=== PATIENT | female | born 1960 | race African-American/Black ===

== ENCOUNTER 2016-10-12 11:13 | Inpatient (IN) ==
[2016-10-12 11:36] LABS: MANUAL DIFF NEEDED? NO
[2016-10-12 11:42] LABS: BASO% 0.4 % (0.0-0.8); EOS# 0.12 X1000 (0.0-0.7); EOS% 1.2 % (0.0-10.0); HEMOGLOBIN 15.9 g/dL (12.0-16.0); IMM GRAN# 0.02 X1000 (0.0-0.04); IMM GRAN% 0.2 % (0.0-0.5); LYMPH# 2.74 X1000 (1.2-3.4); LYMPH% 26.6 % (20.5-51.1); MCH 28.9 PG (27-31); MCHC 33.1 g/dL (33-37); MCV 87.1 FL (81-99); MONO# 0.85 X1000 (0.11-0.59); MONO% 8.2 % (1.7-9.3); MPV 10.5 FL (7.4-10.4); NEUT% 63.4 % (42.2-75.2); PLT 273 X1000 (130-400); RBC 5.51 XMIL (4.2-5.4)
[2016-10-12 12:33] LABS: AGAP 12; ALBUMIN 4.2 g/dL (3.5-5.0); ALKALINE PHOSPHATASE 101 U/L (32-104); BUN 11 mg/dL (8-22); CALCIUM 9.9 mg/dL (8.8-10.2); CHLORIDE 93 mmol/L (98-107); COSMO 269; GOT 20 U/L (10-30); GPT 13 U/L (10-36); POTASSIUM 3.6 mmol/L (3.5-5.1); SODIUM 135 mmol/L (136-145); TCO2 30 mmol/L (25-35); TOTAL BILIRUBIN 0.35 mg/dL (0.20-1.00); TOTAL PROTEIN 8.1 g/dL (6.3-8.3)
[2016-10-12] MEDS ORDERED: DILAUDID IV ONE (12:44)
--- NOTE | 2016-10-12 12:46 | PROVIDER DOCUMENTATION ---
This chart was entered by Michele Goldman Scribe, acting as scribe for Tony Rowland MD. HPI-Respiratory General - General Stated Complaint: right pneumothorax Time Seen by Provider: 10/12/16 11:13 Source: patient Allergies/Adverse Reactions: Patient Allergies Allergy/AdvReac Type Severity Reaction Status Date / Time minocycline HCl * AdvReac HIVES Verified 10/12/16 12:03 [From Minocin] Home Medications: Home Medication List Medication Instructions Recorded Confirmed Last Taken Type Hydrochlorothiazide 2 tab PO DAILY 12/26/14 10/12/16 12/26/14 History Metoprolol Succinate E.r. [Toprol 100 mg PO DAILY 12/26/14 10/12/16 12/26/14 History Xl] - History of Present Illness-Resp Nature of Presenting Problem: patient is a 56 y/o F that presents to the ER with shortness of breath x 2 weeks. patient went to pcp today, had outpatient xray that revealed a collapse upper right lobe to right lung. History of same in past. patient denies cough or chest pain. Quality of Pain: reports: tightness Severity in ED: reports: moderate Onset/Duration: reports: gradual, other (2 weeks) Timing: reports: still present, constant Context: denies: recent URI, out of meds, sports/exercise Cough Quality/Degree: reports: no cough Episode Frequency: occasional episodes Current Respiratory Medication Therapy: Initiated see nurses note Modifying Factors: worse with: exertion, lying down Associated Symptoms: reports: shortness of breath, short of breath. denies: cough, fever/chills, flu-like symptoms, heart racing, nasal congestion, nasal drainage, sweaty, wheezing Similar Symptoms Previously?: Yes Recently seen or treated by another doctor?: Yes Review of Systems - Adult - REVIEW OF SYSTEMS - ADULT Constitutional: denies: chills, fever Eyes: reports: no symptoms reported Ears, Nose, Mouth & Throat: reports: no symptoms reported Cardiovascular: reports: orthopnea. denies: chest pain, palpitations Respiratory: reports: dyspnea on exertion, shortness of breath. denies: wheezing Gastrointestinal: denies: diarrhea, nausea, vomiting Genitourinary: reports: no symptoms reported Musculoskeletal: reports: no symptoms reported Integumentary: reports: no symptoms reported Neurological: reports: no symptoms reported Psychiatric: reports: no symptoms reported Endocrine: reports: no symptoms reported Hematologic/Lymphatic: reports: no symptoms reported Allergic/Immunologic: reports: no symptoms reported All Other Systems: Reviewed and Negative Past History - Adult - PAST MEDICAL HISTORY-ADULT Review of Records: reports: Old Records Reviewed, Nursing Assessment Review, Medications Reviewed Cardiovascular: reports: HTN Respiratory: reports: other (pulmonary nodule--followed with no change since 2010) - PRIOR SURGERIES/PROCEDURES Surgical/Procedure History: reports: other (bronchoscopy with biopsy for RLL lung lesion 2010, previous chest tube) - IMMUNIZATION STATUS Childhood Immunizations: See Nurse Assessment Flu Vaccine: See Nurse Assessment - FAMILY HISTORY Family History: reviewed, not pertinent - SOCIAL HISTORY Smoking: non-smoker Living Situation: family Physical Exam-General - PHYSICAL EXAM-ADULT Initial Vital Signs Reviewed: Yes - CONSTITUTIONAL General Appearance: alert, mild distress - EYES Eyes: PERRL/EOMI, pink conjunctivae - HEAD, EARS, NOSE, MOUTH & THROAT HENMT: normocephalic/atraumatic, moist mucous membranes, normal ENT inspection - NECK Neck: non-tender, full range of motion, normal inspection - RESPIRATORY Respiratory: no respiratory distress, no accessory muscle use, decreased breath sounds (complete right lung) - CARDIOVASCULAR Cardiovascular: regular rate, rhythm, no edema, no murmur - GASTROINTESTINAL (ABDOMEN) Abdominal Exam: normal bowel sounds, non tender, soft, no organomegaly, no pulsatile mass - MUSCULOSKELETAL Back Exam: no CVA tenderness, no vertebral tenderness Extremity: normal range of motion, normal inspection, no pedal edema - SKIN Integumentary: normal color, warm/dry - NEUROLOGIC Neurologic: grossly normal, no motor/sensory deficits - PSYCHIATRIC Psych/Mental Status: normal mood/affect, normal thought content, normal thought process, oriented x 3 Progress - PLAN OF CARE/RESULTS Progress/Plan/Lab Results: Vital Signs - 8 hr 10/12/16 11:15 10/12/16 11:30 10/12/16 11:45 Temperature 98.2 F Pulse Rate 78 68 76 Respiratory Rate 13 25 H 17 Blood Pressure 152/99 151/71 142/117 O2 Sat by Pulse Oximetry 92 L 93 L 95 10/12/16 12:02 10/12/16 12:05 10/12/16 12:17 Temperature Pulse Rate 97 H 77 74 Respiratory Rate 35 H 15 21 Blood Pressure 147/100 135/93 O2 Sat by Pulse Oximetry 96 97 94 L 10/12/16 12:31 10/12/16 12:45 Temperature Pulse Rate 72 65 Respiratory Rate 19 14 Blood Pressure 150/97 143/95 O2 Sat by Pulse Oximetry 96 94 L Laboratory Results - last 24 hr 10/12/16 10/12/16 11:22 11:22 WBC 10.32 RBC 5.51 H Hgb 15.9 Hct 48.0 H MCV 87.1 MCH 28.9 MCHC 33.1 RDW Std Deviation 14.5 Plt Count 273 MPV 10.5 H Immature Gran % (Auto) 0.2 Neut % (Auto) 63.4 Lymph % (Auto) 26.6 [facility] % (Auto) 8.2 Eos % (Auto) 1.2 Baso % (Auto) 0.4 Immature Gran # (Auto) 0.02 Neut # (Auto) 6.55 H Lymph # (Auto) 2.74 [facility] # (Auto) 0.85 H Eos # (Auto) 0.12 Baso # (Auto) 0.04 Sodium 135 L Potassium 3.6 Chloride 93 L Carbon Dioxide 30 Anion Gap 12 BUN 11 Creatinine 0.8 Estimated GFR/1.73 m2 > 60 BUN/Creatinine Ratio 14 Glucose 93 Calculated Osmolality 269 Calcium 9.9 Total Bilirubin 0.35 AST 20 ALT 13 Alkaline Phosphatase 101 Total Protein 8.1 Albumin 4.2 Globulin 3.9 Albumin/Globulin Ratio 1.1 Orders Category Date Time Status Admit - [facility] Routine AdmDCTranf 10/12/16 15:03 Ordered Advance Diet as Tolerated ORDERED Care 10/12/16 15:03 Active Dressing Check PRN Care 10/12/16 15:03 Active Dressing Check Q1h Care 10/12/16 15:03 Active Misc. NRSG Communication Order DIRECTED Care 10/12/16 15:03 Active Routine PostOp Vital Signs ORDERED Care 10/12/16 15:03 Active CHEST-PORTABLE [RAD] Routine Exams 10/13/16 06:00 Ordered CHEST/ABD TUBE PLACEMENT [RAD] Stat Exams 10/12/16 12:12 Completed CBC WITH ELECTRONIC DIFF [HEME] Stat Lab 10/12/16 11:22 Completed CMP [COMPREHENSIVE METABOLIC PANEL] [CHEM] Stat Lab 10/12/16 11:22 Completed 0.9% Sodium Chloride Inj [Ns] 1,000 ml Med 10/12/16 15:03 Active IV KVO Hydrochlorothiazide Med 10/13/16 09:00 Active 25 mg PO DAILY Hydromorphone [Dilaudid] Med 10/12/16 15:03 Active 0.5 mg IV Q2-4H PRN PRN Hydromorphone [Dilaudid] Med 10/12/16 12:44 Discontinued 1 mg IV NOW ONE Metoprolol Succinate E.r. [Toprol Xl] Med 10/13/16 09:00 Active 100 mg PO DAILY Ondansetron [Zofran] Med 10/12/16 15:03 Active 4 mg IV Q4-6H PRN PRN Promethazine [Phenergan] Med 10/12/16 13:30 Discontinued 25 mg IV NOW ONE Sodium Chloride 0.9% Med 10/12/16 13:30 Discontinued 10 ml INJ NOW ONE Transfer/Admit Order [TRANSFER] Routine Transfer 10/12/16 12:19 Completed reviewed outpatient xray and reports, shows patient has interval development of large right-sided pneumothorax with collapse of the right upper lobe 1154- at bedside Vital Signs Temp Pulse Resp BP Pulse Ox 10/12/16 12:31 72 19 150/97 96 10/12/16 12:05 77 15 147/100 97 10/12/16 12:02 97 H 35 H 96 10/12/16 11:45 76 17 142/117 95 10/12/16 11:30 68 25 H 151/71 93 L 10/12/16 11:15 98.2 F 78 13 152/99 92 L minocycline HCl * [From Minocin] Adverse Reaction (Verified 10/12/16 12:03) HIVES Hydrochlorothiazide 2 tab PO DAILY 12/26/14 Metoprolol Succinate E.r. [Toprol Xl] 100 mg PO DAILY 12/26/14 Laboratory 10/12/16 10/12/16 11:22 11:22 WBC 10.32 RBC 5.51 H Hgb 15.9 Hct 48.0 H MCV 87.1 MCH 28.9 MCHC 33.1 RDW Std Deviation 14.5 Plt Count 273 MPV 10.5 H Immature Gran % (Auto) 0.2 Neut % (Auto) 63.4 Lymph % (Auto) 26.6 [facility] % (Auto) 8.2 Eos % (Auto) 1.2 Baso % (Auto) 0.4 Immature Gran # (Auto) 0.02 Neut # (Auto) 6.55 H Lymph # (Auto) 2.74 [facility] # (Auto) 0.85 H Eos # (Auto) 0.12 Baso # (Auto) 0.04 Sodium 135 L Potassium 3.6 Chloride 93 L Carbon Dioxide 30 Anion Gap 12 BUN 11 Creatinine 0.8 Estimated GFR/1.73 m2 > 60 BUN/Creatinine Ratio 14 Glucose 93 Calculated Osmolality 269 Calcium 9.9 Total Bilirubin 0.35 AST 20 ALT 13 Alkaline Phosphatase 101 Total Protein 8.1 Albumin 4.2 Globulin 3.9 Albumin/Globulin Ratio 1.1 Orders Category Date Time Status CHEST/ABD TUBE PLACEMENT [RAD] Stat Exams 10/12/16 12:12 Taken CBC WITH ELECTRONIC DIFF [HEME] Stat Lab 10/12/16 11:22 Completed CMP [COMPREHENSIVE METABOLIC PANEL] [CHEM] Stat Lab 10/12/16 11:22 Completed Hydromorphone [Dilaudid] Med 10/12/16 12:44 Discontinued 1 mg IV NOW ONE Transfer/Admit Order [TRANSFER] Routine Transfer 10/12/16 12:19 Ordered Result Diagrams: 10/12/16 11:22 10/12/16 11:22 - CONSULTS/PCP/HOSPITALIST Notification #1 *Consult/PCP/Hospitalist*: Dr. Chace Madden Time Discussed: 11:42 Reason/Comments: collapse right lung Consult Disposition: Will see in ED Departure - Departure Time of Disposition Decision: 12:45 DIAGNOSIS: Spontaneous pneumothorax Disposition: ADMITTED INPATIENT 09 Certified Medical Emergency: Emergent Condition: Stable - Critical Care Note This patient required my direct personal management.: Yes This chart was documented by the indicated scribe, (Michele Goldman, Scribe) and accurately reflects the services I performed and decisions made by me, Tony Rowland MD, as attested by the provider's signature.
--- NOTE | 2016-10-12 12:51 | Diag Imaging Result Document ---
PROCEDURE NAME: CHEST/ABD TUBE PLACEMENT - 10/12/2016 PORTABLE CHEST: COMPARISON: Compared to study performed earlier. FINDINGS: Interval placement of a right-sided chest tube. Marked decrease in the size of the right-sided pneumothorax. There has been partial reexpansion of the right upper lobe. Left lung remains clear. IMPRESSION: Placement of a right-sided chest tube with partial reexpansion of the right upper lobe and interval decrease in the size of the pneumothorax.
[2016-10-12] MEDS ORDERED: SODIUM CHLORIDE 0.9% INJ ONE (13:30)
[2016-10-12] MEDS ORDERED: PHENERGAN IV ONE (13:30)
--- NOTE | 2016-10-12 13:30 | HISTORY AND PHYSICAL ---
CHIEF COMPLAINT: Right pneumothorax. HISTORY: This is a 56-year-old lady who presented to Dr. Muhammad today for routine physical. She was noticed to have diminished breath sounds and having some chest discomfort so a chest x-ray is ordered revealing a right pneumothorax. She was sent to the ED. PAST HISTORY: Is pertinent for previous spontaneous pneumothorax on the right in December,. She was treated with chest tube x 2 at that time by Dr. Cee that resolved and she was discharged. OTHER MEDICAL PROBLEMS: Include hypertension. MEDICATIONS AT HOME: 1. Metoprolol. 2. Hydrochlorothiazide. ALLERGIES: She has no known drug allergies. FAMILY HISTORY: Noncontributory. SOCIAL HISTORY: She does not smoke or drink alcohol or do any illicit drug use. REVIEW OF SYSTEMS: Pertinent only for the right chest discomfort and mild shortness of breath. PHYSICAL EXAMINATION: VITAL SIGNS: She is afebrile. Heart rate 78, respiratory rate is 13. Blood pressure 152/99. O2 saturation is 92% on room air. She has no cervical adenopathy. Breath sounds are diminished on the right side. HEART: Regular rate and rhythm. She has a hypertrophic scar in the right upper anterior chest and one on the right lateral chest. ABDOMEN: Soft, nontender. No peripheral edema. NEUROLOGIC: She is awake and alert. DIAGNOSTICS/[place]S: [place] [address], hemoglobin 15. Hematocrit 48. X-ray shows a large right pneumothorax. ASSESSMENT: Spontaneous right pneumothorax. It is recurrent. The plan is a right chest tube placement. I have discussed it with her. She understands and agrees to proceed. cc: Tomas Madden MD
--- NOTE | 2016-10-12 14:49 | OPERATIVE NOTE ---
PROCEDURE DATE: 10/12/2016 PROCEDURE PERFORMED: Right chest tube placement. SURGEON: Tomas Madden MD PREOPERATIVE DIAGNOSIS: Recurrent spontaneous right pneumothorax. POSTOPERATIVE DIAGNOSIS: Recurrent spontaneous right pneumothorax. DESCRIPTION OF PROCEDURE: The patient was laid supine with only gentle elevation of her head. The right breast was retracted cephalad. The submammary skin was prepped and draped in a sterile fashion. We anesthetized the skin with 1% lidocaine without epinephrine. We anesthetized the skin, subcutaneous tissue, and the pleura just over a rib. We incised the skin and used Metzenbaum scissors to spread the subcutaneous tissue until we entered the pleural space. We then introduced a 28 trocar chest tube into the pleural space. We advanced it laterally and cephalad. We secured the chest tube to the skin with 0 silk sutures and sterile gauze dressings applied. The chest tube was attached to the Pleur-evac. She tolerated this satisfactorily. A chest x-ray was ordered. cc: Tomas Madden MD
[2016-10-12] MEDS ORDERED: ZOFRAN IV PRN (15:03)
[2016-10-12] MEDS: NS 1,000 ML IV SCH (15:39)
[2016-10-12] MEDS: DILAUDID IV PRN (21:49)
[2016-10-13] MEDS: DILAUDID IV PRN ×2 (02:39→14:24)
--- NOTE | 2016-10-13 07:27 | Diag Imaging Result Document ---
PROCEDURE NAME: CHEST-PORTABLE - 10/13/2016 AP PORTABLE CHEST AT 0500 HOURS: FINDINGS: There is a chest tube on the right side. Despite this, the right-sided pneumothorax appears somewhat larger than it did on the previous study of 10/12/2016 at 12:25 hours. The left lung is unchanged in appearance. There is slightly worsened atelectasis in the right base. IMPRESSION: Worsened right pneumothorax.
[2016-10-13] MEDS: HYDROCHLOROTHIAZIDE PO SCH (09:40)
[2016-10-13] MEDS: TOPROL XL PO SCH (09:40)
[2016-10-13] MEDS: NS 1,000 ML IV SCH (14:28)
[2016-10-14] MEDS: DILAUDID IV PRN ×2 (00:14→23:18)
--- NOTE | 2016-10-14 07:42 | Diag Imaging Result Document ---
PROCEDURE NAME: CHEST-PORTABLE - 10/14/2016 ERECT AP PORTABLE CHEST AT 0555 HOURS: FINDINGS: The inspiration is less optimal on the current study than on the previous examination of 10/13/2016; however, despite this, the pneumothorax on the right has diminished in volume. The right chest tube is again noted. There is some atelectasis present in the right base. IMPRESSION: Improved right pneumothorax.
[2016-10-14] MEDS: HYDROCHLOROTHIAZIDE PO SCH (08:07)
[2016-10-14] MEDS: TOPROL XL PO SCH (08:07)
[2016-10-15] MEDS: HYDROCHLOROTHIAZIDE PO SCH (09:52)
[2016-10-15] MEDS: TOPROL XL PO SCH (09:52)
[2016-10-15] MEDS: DILAUDID IV PRN ×2 (12:10→21:00)
[2016-10-15] MEDS: NS 1,000 ML IV SCH (12:14)
--- NOTE | 2016-10-15 17:38 | PROGRESS NOTE ---
DATE: 10/15/2016 SUBJECTIVE: The patient says she is breathing okay, not any worse than previous. OBJECTIVE: Vital signs: She is afebrile. Vital signs are stable. General: Alert and oriented x4. No acute distress. Respiratory: Bilateral equal breath sounds. ASSESSMENT AND PLAN: This is a 56-year-old female with recurrent spontaneous pneumothorax on the right. She is scheduled for a right video-assisted thoracoscopy with Dr. Madden on Monday. cc: MD Tomas Bradley MD
[2016-10-16] MEDS: TOPROL XL PO SCH (09:11)
[2016-10-16] MEDS: HYDROCHLOROTHIAZIDE PO SCH (09:11)
[2016-10-16] MEDS: NS 1,000 ML IV SCH (09:11)
--- NOTE | 2016-10-16 10:24 | PROGRESS NOTE ---
DATE: 10/16/2016 SUBJECTIVE: The patient complains of some drainage around her chest tube with soiled dressings. OBJECTIVE: Vital Signs: She is afebrile. Vital signs are stable. Chest tube has put out 40 mL of fluid. General: She is alert and oriented x4. No acute distress. Respiratory: Bilateral breath sounds. No work of breathing. ASSESSMENT/PLAN: A 56-year-old female with recurrent spontaneous pneumothorax on the right. She is scheduled for a thoracoscopy tomorrow. cc: MD Tomas Bradley MD
[2016-10-16] MEDS: DILAUDID IV PRN (21:02)
[2016-10-17] MEDS: NS 1,000 ML IV SCH (08:20)
[2016-10-17] MEDS ORDERED: LR 1,000 ML ONE (11:46)
[2016-10-17] MEDS ORDERED: KEFZOL 1 GM/D5W 1 GM/50 ML IVPB ONE (11:46)
[2016-10-17] MEDS ORDERED: MARCAINE 0.25% PF/EPI 1:200,000 ONE (11:46)
[2016-10-17 13:00] LABS: URINE MICRO REVIEW NEEDED? NO; URINE SOURCE CATH
[2016-10-17 13:04] LABS: BILIRUBIN URINE NEGATIVE (NEGATIVE); BLOOD URINE NEGATIVE (NEGATIVE); COLOR YELLOW; GLUCOSE URINE NEGATIVE (NEGATIVE); LEUKOCYTES URINE NEGATIVE (NEGATIVE); NITRITE URINE NEGATIVE (NEGATIVE); PH URINE 7.5; PROTEIN URINE NEGATIVE (NEGATIVE); SP GRAVITY URINE 1.014; TURBIDITY URINE CLEAR (CLEAR); UR EPITHELIAL CELLS <10 /HPF (<10); URINE BACTERIA 1+ /HPF; URINE RBC <10 /HPF (<10); URINE WBC <10 /HPF (<10); UROBILINOGEN URINE NORMAL (NORMAL)
[2016-10-17] MEDS ORDERED: SCLEROSOL INTRAPLEURAL AEROSOL IX ONE (14:00)
[2016-10-17] MEDS ORDERED: MARCAINE 0.25% PF ONE (14:34)
[2016-10-17] MEDS ORDERED: SODIUM CHLORIDE 0.9% 10 ML ONE (14:34)
[2016-10-17] MEDS ORDERED: EXPAREL 1.3% ONE (14:34)
[2016-10-17] MEDS ORDERED: DILAUDID IV PRN (15:08)
[2016-10-17] MEDS ORDERED: DIPRIVAN 1% ONE (16:06)
[2016-10-17] MEDS ORDERED: FENTANYL ONE (16:06)
[2016-10-17] MEDS ORDERED: VERSED ONE (16:06)
--- NOTE | 2016-10-17 16:23 | Diag Imaging Result Document ---
PROCEDURE NAME: CHEST-PORTABLE - 10/17/2016 PORTABLE CHEST: COMPARISON: Compared with 10/14/2016. FINDINGS: There has been insertion of an endotracheal tube with its tip approximately 2.5 cm above the kt. The right chest tube is being exchanged for a new right chest tube, the tip of which is located at the medial right mid to lower chest. There has been interval resolution of the previous right pneumothorax. There are hazy infiltrates, atelectasis, or edema at the bilateral lung bases which have increased, particularly on the left. Heart size appears upper normal. IMPRESSION: Tip of endotracheal tube approximately 2.5 cm above the kt. No evidence of pneumothorax. Hazy infiltrates, atelectasis, or edema at the bilateral bases which have increased, particularly on the left.
[2016-10-17] MEDS ORDERED: NEOSTIGMINE ONE (16:45)
[2016-10-17] MEDS ORDERED: XYLOCAINE-MPF 2% ONE (16:45)
[2016-10-17] MEDS ORDERED: EPHEDRINE ONE (16:45)
[2016-10-17] MEDS ORDERED: OFIRMEV 1000 MG/ISOTONIC SOLN 1,000 MG/100 ML BOTTLE ONE (16:45)
[2016-10-17] MEDS ORDERED: QUELICIN (DOSE) ONE (16:45)
[2016-10-17] MEDS ORDERED: LR 2,000 ML ONE (16:45)
[2016-10-17] MEDS ORDERED: ZEMURON ONE (16:45)
[2016-10-17] MEDS ORDERED: ZOFRAN ONE (16:45)
[2016-10-17] MEDS ORDERED: ROBINUL ONE (16:45)
[2016-10-17] MEDS ORDERED: DECADRON ONE (16:45)
[2016-10-17 16:54] LABS: ALLEN TEST YES; BLOOD TYPE ARTERIAL; DRAW SITE R RADIAL; METHB 1.1 % (0.0-1.5); O2(CT) 19.2 mL/dL (15.0-23.0); PO2(98.6) 73 mmHg (60-100); SAMPLE BLOOD; SAO2 97.4 % (95.0-100.0); THB 14.5 g/dL (11.5-17.4); pH(98.6) 7.34 (7.35-7.45)
[2016-10-17 17:00] LABS: ALLEN TEST YES; BLOOD TYPE ARTERIAL; DRAW SITE R RADIAL; SAMPLE BLOOD
[2016-10-17 17:02] LABS: MODALITY VENTILATOR; PCO2(98.6) 63 mmHg (35-45)
[2016-10-17 17:04] LABS: BE 6.5 mmoll (-3.0-3.0); PCO2(98.6) 50 mmHg (35-45); PO2(98.6) 65 mmHg (60-100); pH(98.6) 7.42 (7.35-7.45)
[2016-10-17 17:05] LABS: METHB 1.7 % (0.0-1.5); SAO2 96.8 % (95.0-100.0); THB 14.6 g/dL (11.5-17.4)
[2016-10-17 17:06] LABS: MODALITY VENTILATOR; SRATE 6 BPM; TVOL 500 mL
--- NOTE | 2016-10-17 18:12 | OPERATIVE NOTE ---
PROCEDURE DATE: 10/17/2016 PROCEDURES: Diagnostic right thoracoscopy; right lateral thoracotomy with excision of multiple blebs. SURGEON: Tomas Madden MD. COMPRESSED [employer]QUIPMENT MECHANIC: Louis Simeon RN. PREOPERATIVE DIAGNOSIS: Recurrent right spontaneous pneumothorax. POSTOP DIAGNOSIS: Recurrent right spontaneous pneumothorax secondary to blebs located at the apexes as well as off the middle lobe. DESCRIPTION OF PROCEDURE: Satisfactory general endotracheal anesthesia was achieved. A double- lumen tube was placed and secured in position. The patient was then placed in the decubitus position with the right side up and secured there. The right chest was prepped and draped in a sterile fashion. We began in the upper anterior chest anesthetizing the skin, making incision and dissected through the subcutaneous tissue into the pleural space. We had to use regular 12 trocars in order to reach the pleural space. I placed another one posteriorly between the posterior border of the scapula and spine. There were adhesions noted between the lung and the chest wall and we had to bluntly take those down. An additional Thoracoport was placed below the scapula so we had 3 different ports placed. Blebs were noted and what appeared to be off the apex of the lung and possibly off the middle or lower lobe. We are able to staple across 1 but we could not do an adequate job removing the blebs thoracoscopically so at this point, we decided to do a lateral thoracotomy so I marked the skin and anesthetized the skin with 0.25 Marcaine with epinephrine, used a 14 cm incision and carried the incision actually through where the Thoracoport right below the scapula was in the midaspect of the thoracotomy incision. We carried our incision through the subcutaneous tissue through the latissimus muscle with the edge and the serratus muscle and entered the pleural space. We had grasped the bleb with a ratcheted grasper through her posterior Thoracoport so we brought it up to the wound. We then placed a rib transferrer and spread the ribs slightly allowing delivery of the large bled through the thoracotomy incision. We then used a DOROTHEA purple 60 cm long stapler to staple across the base of the bleb. We removed it in toto. We did an additional excision of a small bleb off the upper lobe as well. After that we inspected the lung and did not see any other blebs on the upper, middle or lower lobes. We felt we had adequately completed the blebectomy, then placed a 32 chest tube through the anterior Thoracoport. We removed the Thoracoport posteriorly, placed 3-0 Polysorb in subcutaneous tissue and closed that with a 4-0 Polysorb subcuticular stitch. For the thoracotomy incision we used Exparel combined with plain Marcaine a total of 50 mL, that was 20 mL of Exparel, 20 mL of plain Marcaine 0.25 and then 10 mL of saline. We injected this around the ribs and in the dermis and subcutaneous tissue. After we generously applied that we used a #2 Tycron to go around the ribs and bring them together. We closed the serratus with 1 Polysorb. We closed the latissimus with 0 Polysorb. We closed the subcutaneous tissue with 0 Polysorb and closed the skin with rayshawn. Sterile dressings were applied. The chest tube was secured at the skin level with 0 silk. The chest tube was attached to a Pleur-evac. Sterile dressing was applied. She tolerated it well. Was sent to the recovery room in satisfactory condition. cc: Vincent Muhammad MD
[2016-10-17] MEDS: HYDROCHLOROTHIAZIDE PO SCH (19:00)
[2016-10-17] MEDS: TOPROL XL PO SCH (19:01)
[2016-10-17] MEDS: PERIDEX MT SCH (21:10)
[2016-10-17] MEDS: OFIRMEV 1000 MG/ISOTONIC SOLN 1,000 MG/100 ML BOTTLE IV SCH (23:32)
[2016-10-18] MEDS: OFIRMEV 1000 MG/ISOTONIC SOLN 1,000 MG/100 ML BOTTLE IV SCH ×4 (05:38→23:45)
--- NOTE | 2016-10-18 07:26 | Diag Imaging Result Document ---
PROCEDURE NAME: CHEST-PORTABLE - 10/18/2016 PORTABLE CHEST: COMPARISON: The endotracheal tube has been removed. No change in the right-sided chest tube. No pneumothorax identified. The heart remains prominent. Increased markings in the lower lungs are similar to the prior exam. Questionable small left effusion. There are skin rayshawn seen laterally overlying the right breast. IMPRESSION: Interval removal of the endotracheal tube, otherwise stable chest.
[2016-10-18] MEDS: PERIDEX MT SCH ×2 (08:54→23:45)
[2016-10-18] MEDS: HYDROCHLOROTHIAZIDE PO SCH (08:54)
[2016-10-18] MEDS: TOPROL XL PO SCH (08:54)
[2016-10-18] MEDS ORDERED: ULTRAM PO PRN (16:13)
[2016-10-18] MEDS: NS 1,000 ML IV SCH (23:45)
[2016-10-19] MEDS: OFIRMEV 1000 MG/ISOTONIC SOLN 1,000 MG/100 ML BOTTLE IV SCH ×4 (05:12→22:15)
[2016-10-19 07:13] LABS: MANUAL DIFF NEEDED? NO
[2016-10-19 07:14] LABS: BASO% 0.2 % (0.0-0.8); EOS# 0.27 X1000 (0.0-0.7); EOS% 1.8 % (0.0-10.0); HEMATOCRIT 38.1 % (37.0-47.0); HEMOGLOBIN 12.4 g/dL (12.0-16.0); IMM GRAN# 0.02 X1000 (0.0-0.04); IMM GRAN% 0.1 % (0.0-0.5); LYMPH# 2.07 X1000 (1.2-3.4); LYMPH% 13.6 % (20.5-51.1); MCH 29.5 PG (27-31); MCHC 32.5 g/dL (33-37); MCV 90.7 FL (81-99); MONO# 1.44 X1000 (0.11-0.59); MONO% 9.5 % (1.7-9.3); MPV 10.5 FL (7.4-10.4); NEUT% 74.8 % (42.2-75.2); PLT 246 X1000 (130-400)
--- NOTE | 2016-10-19 08:55 | Diag Imaging Result Document ---
PROCEDURE NAME: CHEST-PORTABLE - 10/19/2016 SINGLE FRONTAL RADIOGRAPH OF THE CHEST: COMPARISON: 10/18/2016. FINDINGS: Right chest tube is in approximately stable position. No pneumothorax can be identified radiographically. Increased lung markings in the lower lung zones bilaterally, especially on the right, are stable. There are no new consolidations. Cardiac silhouette is stable. IMPRESSION: Stable chest.
[2016-10-19] MEDS: TOPROL XL PO SCH (10:00)
[2016-10-19] MEDS: PERIDEX MT SCH ×2 (10:00→22:15)
[2016-10-19] MEDS: HYDROCHLOROTHIAZIDE PO SCH (10:01)
[2016-10-19] MEDS: FLAGYL 500 MG/NS 500 MG/100 ML IVPB IV SCH ×2 (13:21→18:01)
[2016-10-19] MEDS: LEVAQUIN 500 MG/D5W 500 MG/100 ML IVPB IV SCH (14:24)
[2016-10-19] MEDS: DILAUDID IV PRN (23:23)
[2016-10-20] MEDS: FLAGYL 500 MG/NS 500 MG/100 ML IVPB IV SCH ×3 (00:25→11:08)
[2016-10-20] MEDS: OFIRMEV 1000 MG/ISOTONIC SOLN 1,000 MG/100 ML BOTTLE IV SCH ×2 (04:33→10:51)
[2016-10-20 05:46] LABS: MANUAL DIFF NEEDED? NO
[2016-10-20 05:59] LABS: BASO% 0.3 % (0.0-0.8); EOS# 0.33 X1000 (0.0-0.7); EOS% 2.4 % (0.0-10.0); HEMATOCRIT 40.3 % (37.0-47.0); IMM GRAN# 0.03 X1000 (0.0-0.04); IMM GRAN% 0.2 % (0.0-0.5); LYMPH# 2.15 X1000 (1.2-3.4); LYMPH% 15.9 % (20.5-51.1); MCH 29.1 PG (27-31); MCHC 32.3 g/dL (33-37); MCV 90.2 FL (81-99); MONO# 1.11 X1000 (0.11-0.59); MONO% 8.2 % (1.7-9.3); MPV 10.6 FL (7.4-10.4); PLT 274 X1000 (130-400); RBC 4.47 XMIL (4.2-5.4)
[2016-10-20] MEDS: HYDROCHLOROTHIAZIDE PO SCH (08:26)
[2016-10-20] MEDS: PERIDEX MT SCH (08:26)
[2016-10-20] MEDS: TOPROL XL PO SCH (08:26)
[2016-10-20] MEDS: DILAUDID IV PRN (11:10)
[2016-10-20] MEDS: LEVAQUIN 500 MG/D5W 500 MG/100 ML IVPB IV SCH (14:32)
--- NOTE | 2016-10-20 15:30 | Diag Imaging Result Document ---
PROCEDURE NAME: CHEST-PORTABLE - 10/20/2016 SINGLE FRONTAL RADIOGRAPH OF THE CHEST: COMPARISON: 10/19/2016. FINDINGS: The right chest tube has been removed. No residual pneumothorax can be identified. Inspiration is suboptimal. There appears to be a small right pleural fluid collection. There are increased lung markings in both lower lung zones, more prominent on the right. Given differences in inspiration, it is approximately stable. No new consolidations are identified otherwise. Cardiac silhouette is stable. IMPRESSION: Interval removal of right chest tube. Essentially stable chest, otherwise.
[2016-10-20 15:33] VITALS: BP 169/78
--- NOTE | 2016-11-23 11:29 | DISCHARGE SUMMARY ---
ADMISSION DATE: 10/12/2016 DISCHARGE DATE: 10/20/2016 PRIMARY DISCHARGE DIAGNOSIS: Recurrent right pneumothorax secondary to bleb disease of the right. PRIMARY PROCEDURE: Right chest tube placement on 10/12/2016, and then there was a right thoracoscopy, right lateral thoracotomy with excision of multiple blebs on 10/17/2016. HISTORY: This is a 56-year-old white female who presented to Dr. Muhammad today, and a routine chest x-ray revealed a pneumothorax. She was sent to the ED, and then admitted. She has a history of chest tube twice in the past by Dr. Cee. This dates back to 12/2014. HOSPITAL COURSE: Following the placement of her chest tube, she continued to have an air leak, so it became evident that she would benefit from a thoracoscopy with possible blebectomy. We proceeded with that on 10/17/2016, and actually required a thoracotomy for excision of multiple blebs. Postoperatively, she did generally well. By 10/20/2016, she was without evidence of air leak, her chest tubes were removed, and she was discharged home. She will return to the office in followup. Her wound was fine. cc: MD Vincent Salinas MD
== END 2016-10-20 16:28 | disposition home or self-care (01) ==
LOC: ED 11:13 → 4N 14:42
PROVIDERS: ADMIT Surgery; ATTEND Surgery
PROC: GE.THRS (2016-10-17 12:03)
PROC: GE.THRT (2016-10-17 12:03)